=== PATIENT | female | born 1980 | race Caucasian/White ===

== ENCOUNTER 2022-03-18 17:44 | Emergency (ER) | payer OTHER ==
[2022-03-18 19:20] LABS: HEMOGLOBIN 15.5 gm/dl (12.3-15.3); RED BLOOD COUNT 4.89 M/UL (4.00-5.10); WHITE BLOOD COUNT 10.5 K/UL (4.5-11.0)
[2022-03-18 19:37] LABS: BUN/CREATININE RATIO 14 (0-10)
== END 2022-03-19 00:16 | disposition home or self-care (01) ==
LOC: ER1 17:44
PROVIDERS: Emergency Medicine
DX: F41.9 Anxiety disorder, unspecified (principal); Z88.0 Allergy status to penicillin
CPT/HCPCS: 80053; 81001; 84703; 85025; 87086; 99283